=== PATIENT | male | born 1960 | race Caucasian/White ===

== ENCOUNTER 2024-01-22 20:53 | Inpatient (IN) | payer OTHER, SELFPAY ==
[2024-01-22] VITALS (13 sets, daily range): BP systolic 138–178; BP diastolic 92–125; PULSE 70–88; RESP 13–26; TEMP 36.2–36.3; O2SAT 93–97; BMI 28.3; BMI 27.3
--- NOTE | 2024-01-22 20:57 | ED.VIS.CHEST ---
HPI History of Present Illness Chief Complaint: Chest Pain Detail of Chief Complaint: Chest pain, posterior DE on prehospital EKG Informant: patient and EMS Onset/Context/Timing Onset: Today (1830) and Weeks (Anginal symptoms for the past several weeks) Activity at onset: sudden Timing: Continuous Quality: Positive for Aching, Indigestion and Pressure Location: Substernal Current Severity: Mild Maximum Severity: Severe Relieved By: Nothing Associated Symptoms: Positive for Nausea and Dyspnea Narrative Narrative: Patient is 63-year-old male who never smoked presents with EKG G changes and chest pain. Patient states has had intermittent symptoms for the past several weeks. He ignored them. He is not taking his hypertensive meds or cholesterol meds. He is taking herbal supplements instead. He has not had an EKG in approximate 20 years. That EKG was performed in 2004 and was normal. First EKG reveals suspicion for lateral ischemia. Second EKG is consistent with acute posterior myocardial infarction. STEMI team was called. Dr. Anguiano and requested repeat EKG and a posterior EKG. These were obtained and sent to him. Prior Similar Symptoms: Yes Recent Illness/Hospitalization: No CVD Risk Factors: Positive for Hypertension and Hypercholesterolemia PE Risk Factors: Negative for Recent Travel/Surgery, Recent Immobilization, Prior DVT or PE, Cancer or OCP + Smoking + >/=35 TAD Risk Factors: Positive for Hypertension; Negative for Marfan's Syndrome or Family History [facility] Medical History (Updated 01/22/24 @ 21:[address] Redd Velasquez MD) Hypertension Home Medications NK 01/22/24 [History Last Taken Unknown] Allergy/AdvReac Type Severity Reaction Status Date / Time No Known Allergies Allergy Verified 01/22/24 21:02 Social History (Updated 01/22/24 @ 21:[address] Redd Velasquez MD) household members: none Smoking Status: Never smoker ROS ROS ED Constitutional Constitutional ED: Denies chills or fever(s) Eyes Eyes: Reports none ENT ENT ED: Denies rhinorrhea or sore throat Cardiovascular Cardiovascular: Reports as per HPI; Denies orthopnea or paroxysmal nocturnal dyspnea Respiratory/Chest Respiratory/Chest: Reports dyspnea; Denies cough, dyspnea on exertion, orthopnea or paroxysmal nocturnal dyspnea Gastrointestinal Gastrointestinal: Denies abdominal pain, nausea or vomiting Musculoskeletal Musculoskeletal: Denies arthralgias, back pain or myalgias Integumentary Denies rash Neurologic Neurologic: Denies headache(s) or paresthesias Endocrine Endocrinology: Denies cold intolerance or heat intolerance Hematologic/Lymphatic Hematologic/Lymphatic: Denies easy bleeding or easy bruising EXAM Physical Exam Const Vital Signs: 01/22/24 20:53 01/22/24 20:53 01/22/24 21:02 Temperature 97.1 F L Temperature Source Temporal Pulse Rate 88 Respiratory Rate 19 H Respiratory Effort Normal Non-Labored Blood Pressure 175/125 H Blood Pressure Mean 141 Blood Pressure Source Pulse Ox 96 Oxygen Delivery Method Nasal Cannula Nasal Cannula Oxygen Flow Rate (L/min) 2 01/22/24 21:06 01/22/24 21:15 01/22/24 21:09 Temperature 97.1 F L Temperature Source Pulse Rate 86 72 78 Respiratory Rate 16 17 Respiratory Effort Blood Pressure 165/100 H 177/104 H Blood Pressure Mean 121 128 Blood Pressure Source Monitor Pulse Ox 93 Oxygen Delivery Method Oxygen Flow Rate (L/min) 01/22/24 21:10 01/22/24 21:11 01/22/24 21:20 Temperature Temperature Source Pulse Rate 71 78 70 Respiratory Rate 24 H 20 H 19 H Respiratory Effort Blood Pressure 178/100 H 170/99 H Blood Pressure Mean 125 122 Blood Pressure Source Pulse Ox Oxygen Delivery Method Oxygen Flow Rate (L/min) Positive well nourished and well developed General Appearance ED: well developed and NAD HEENT Reports moist mucous membranes normocephalic and atraumatic Eyes PERRL and EOMs intact bilaterally General Eye ED: Negative for pale conjunctiva or scleral icterus Neck no lymphadenopathy, supple and no JVD Chest Wall inspection of chest normal and palpation of chest normal Resp normal respiratory effort and clear to auscultation bilaterally Cardio regular rate, regular rhythm, S1 normal heart sound, S2 normal heart sound and no murmurs Peripheral Pulses: pulses 2+ throughout GI normal to inspection, nondistended, normoactive bowel sounds, soft to palpation, non-tender, non-distended and no masses; Negative for hepatosplenomegaly Back/Spine no CVA tenderness and no thoracic nor lumbar tenderness Extremity normal to inspection General Extremety ED: Negative for edema, pulses abnormal or tenderness General Extremity: Negative for edema or pulses abnormal Neuro oriented x3 and CN's II-XII intact bilaterally Sensorium / Orientation: awake and alert Psych mental status grossly normal Skin no rashes or lesions noted and no wounds Heart Score History: Moderately Suspicious ECG: Significant ST-Depression Age: >45 - <65 years Risk Factors: 1 or 2 Risk Factors Score: 5 MDM MDM MDM Narrative Medical decision making narrative: Patient's history is concerning EKG is definitely abnormal and consistent with posterior DE in my opinion. Dr. Anguiano and was sent photos of the first and second EKG. He requested repeat EKG and posterior EKG. He agrees there is ischemia. He does not believe this represents an acute posterior myocardial infarction. He was told patient did receive aspirin, Brilinta and heparin. He would like patient placed on a nitro drip and a heparin drip. He wishes for me to call back in 30 minutes. If patient is still having discomfort he will take him to the [facility]. Lab Data Attestation: I reviewed the patient's lab results. Lab results narrative: White count is slightly elevated. H&H and differential are normal. Labs: Laboratory Results - last 24 hr 01/22/24 20:58 WBC 11.1 H RBC 5.38 Hgb 15.8 Hct 48.6 MCV 90.3 MCH 29.4 MCHC 32.5 RDW Std Deviation 43.8 RDW Coeff of Nilson 13.3 Plt Count 222 MPV 9.6 Immature Gran % (Auto) 0.400 Neut % (Auto) 73.0 H Lymph % (Auto) 16.3 L [place] % (Auto) 6.8 Eos % (Auto) 2.6 Baso % (Auto) 0.9 Absolute Neuts (auto) 8.1 H Absolute Lymphs (auto) 1.81 Nucleated RBC % 0 PT 13.7 INR 1.1 APTT 117.1 H* EKG Initial EKG: Attestation: I personally reviewed and interpreted this EKG as follows: (EKG was documented in the HPI narrative and MDM.) Treatment and Re-Evaluation :: EKG #[address] depression throughout. Dr. Whalen and is presently in department. Plan is to take to the [facility]. Rhythm is sinus. Rate is normal. Critical Care Time Critical Care Time: Yes Critical care time (excluding procedures): 30-74 minutes (33), Including time spent: (Discussion with paramedics, interpretation of EKG 1 and 2 from paramedics. Review of prior EKG), Discussing w/Patient &/or Family/Physician Office Assistant, Discussing w/Consultants (Dr. Annmarie ruano and hospitalist.) and Arranging Admission or Transfer (To [facility]) Discharge Plan Dx/Rx/DC Orders Clinical Impression: ACS (acute coronary syndrome), Hypercholesterolemia, Hypertension Disposition Disposition: Acute Care [facility]
--- OUTSIDE RECORDS SUMMARY | 2024-01-22 20:58 | XMS RPT_ITS | CCD ---
Author Name Unknown Address [address] [place] [address] Organization [employer] Results Test Name Value Interpretation Reference Range Facil ity Progress note 08-07-2021 Note Date & Type Note Facility 08-07-2021 Note HNO ID: [id number] Author: Taras Strauss MD Service: ? Author Type: Physician Type: Progress Notes Filed: 08/07/2021 10:04 AM Note Text: HISTORY AND PHYSICAL Vanessa Leung 1960 REFERRING PHYSICIAN: Self CHIEF COMPLAINT: Consult (Possible Bilateral Inguinal Hernias) HPI: Vanessa is a 61 year old male with a complaint of discomfort in his right inguinal region and left inguinal region. The patient notes discomfort in this area with lifting, coughing and moving. The symptoms have increased, over the past few weeks. He notes discomfort mostly as he is weight lifting. He is currently doing lower leg presses of approximately 400 pounds and that is when he notes more discomfort in the left side versus the right side. The patient had previous open hernia in the past without mesh and then bilateral open inguinal hernias with mesh in the . The patient notes no symptoms of bowel obstruction and denies nausea or vomiting. PAST MEDICAL HISTORY Diagnosis Date - Hemorrhoid - High cholesterol PAST SURGICAL HISTORY Procedure Laterality Date - BUNIONECTOMY, LAPIDUS-TYPE - HERNIA REPAIR HX 01/1990 Left Inguinal Hernia AND 08/1993 Bilateral Inguinal Hernia repair Current Outpatient Medications Medication Sig - multivitamin tablet Take 1 tablet by mouth once daily. No current facility-administered medications for this visit. ALLERGIES: Patient has no known allergies. PERSONAL HISTORY: Social History Tobacco Use - Smoking status: Never Smoker - Smokeless tobacco: Never Used Vaping Use - Vaping Use: Never used Substance Use Topics - Alcohol use: No - Drug use: Not on file FAMILY HISTORY: FAMILY HISTORY Problem Relation Age of Onset - Heart Mother - Heart Father - Cancer Sister - Cancer Maternal Uncle REVIEW OF SYMPTOMS: The review of systems data was entered by the nurse and reviewed by ia Nursing Notes: Naomie Toro ANN 08/06/2021 3:40 PM Signed REVIEW OF SYSTEMS: General: The patient denies fatigue, denies weight loss, denies weight gain, denies feeling hot, and denies feelings of cold. Eyes: The patient denies glaucoma, denies eye injury/surgery, wears glasses or contacts. Ear/Nose/Throat: The patient denies allergies, denies hayfever, denies ear infections, and denies bloody noses. Cardiovascular: The patient denies chest pain, denies heart disease, denies high blood pressure,denies cardiac stent, denies prior heart attack, denies irregular heart beat, NOTES high cholesterol, denies poor circulation, denies heart failure, other cardiac issues, denies claudication, denies cold feet, denies peripheral arterial stent. Respiratory: The patient denies tuberculosis, denies pneumonia, denies frequent cough, denies pulmonary embolism, denies shortness of breath, and denies coughing up blood. Gastrointestinal: The patient denies difficulty swallowing, denies acid reflux, denies ulcers, denies vomiting, denies jaundice/hepatitis, denies gallbladder problems, denies black or tarry stools, NOTES hemorrhoids, denies bleeding from rectum, denies diverticulitis, denies constipation, denies diarrhea, denies loss of stool control, and NOTES hernias. Kidney/Bladder: The patient denies kidney stones, denies urine infections, and denies bloody urine. Skin: The patient denies a history of skin cancer, denies bleeding/changing moles, and denies a history of skin rash. Neurologic: The patient denies a history of epilepsy/convulsions, denies headaches, denies head/spinal injuries, and denies stroke/TIA. Psychiatric: The patient denies psychiatric medications, denies depression, and denies voices, denies substance abuse. Endocrine: The patient denies thyroid disorders, denies diabetes, and denies hormonal problems. Hematologic: The patient denies a history of bruising, denies bleeding, and denies anemia, denies blood clots. Infections: The patient NOTES a history of measles and mumps, denies rheumatic fever, and denies sexually transmitted diseases. Musculoskeletal: The patient denies back pain/injury, denies back problems, denies sciatica, NOTES knee/foot trouble, NOTES arthritis, or denies gout. When was patient's last Mammogram screening? N/A Last Colonoscopy: None Naomie Toro LPN PHYSICAL EXAMINATION: General: The patient is 61 year old male, well nourished, well hydrated in no acute distress. The patient is oriented to time, place, and person. VITALS: Pulse (!) 58, temperature 36.8 ?C (98.2 ?F), height 177.8 cm (5' 10 ), weight 79.8 kg (176 lb), SpO2 98 %. Body mass index is 25.25 kg/m?. HEENT: Normal cephalic, ataumatic, pupils are equally round, sclera are anicteric, mucous membranes are moist, oropharynx is clear. Neck has no masses, asymmetry or lymphadenopathy. Thyroid is unremarkable. Respiratory: Clear to auscultation and percussion. Normal respiratory excursion and pattern. Cardiac: Examination is regular rate and rh (more content not included)... [facility] Summary Purpose Family History No Family History Records Found Advance Directives No Advanced Directives Records Found Additional Source Comments (unrecognized sect ion and content) No Status Records Found INFORMATION SOURCE (unrecogn ized section and content) FOR RECORDS PERTAINING TO PATIENTS WHO ARE OR HAVE BEEN ENROLLED IN A CHEMICAL DEPENDENCY/SUBSTANCEABUSE PROGRAM, SOME INFORMATION MAY BE OMITTED. This clinical summary was aggregated from multiple sources. Caution should be exercised in using it in the provision of clinical care. This summary normalizes information from multiple sources, and as a consequence, information in this document may materially change the coding, format and clinical context of patient data. In addition, data may be omitted in some cases. CLINICAL DECISIONS SHOULD BE BASED ON THE PRIMARY CLINICAL RECORDS. [email or web address] provides no warranty or guarantee of the accuracy or completeness of information in this document.
--- NOTE | 2024-01-22 21:00 | EKG12_ITS ---
Test Reason : REPEAT CP Blood Pressure : / mmHG Vent. Rate : 074 BPM Atrial Rate : 074 BPM P-R Int : 148 ms QRS Dur : 100 ms QT Int : 404 ms P-R-T Axes : 047 -42 -84 degrees QTc Int : 448 ms Normal sinus rhythm Left axis deviation Inferior infarct , age undetermined Marked ST abnormality, possible anterolateral subendocardial injury Abnormal ECG When compared with ECG of 22-JAN-2024 21:00, MANUAL COMPARISON REQUIRED, DATA IS UNCONFIRMED Confirmed by New Garcia ([id number]), editor farm journal GABBIE COKER ([id number]) on 01/28/2024 11:14:49 AM Referred By: Rod Whalen Confirmed By:New Garcia
[2024-01-22 21:08] LABS: Absolute Lymphocyte Count 1.81 X10^3/uL (0.83-4.51); Absolute Neutrophil Count 8.1 X10^3/uL (2.0-7.7); Basophil% 0.9 % (0-1); Eosinophil# 0.29 X10^3/uL; Eosinophils% 2.6 % (0-5); Hematocrit 48.6 % (40-54); Hemoglobin 15.8 g/dL (13.0-16.5); Lymphocyte # 1.81 X10^3/ul (0.83-4.51); Lymphocyte % 16.3 % (19-41); Mean Corp Hgb Conc 32.5 g/dL (32-36); Mean Corpuscular Hgb 29.4 pg (27.0-32.0); Mean Corpuscular Volume 90.3 fL (80-94); Mean Platelet Vol. 9.6 fl (6.2-12.0); Monocyte# 0.75 X10^3/uL; Monocyte% 6.8 % (0-10); NRBC Flagged by Analyzer 0 % (0-5); Neutrophil # 8.12 X10^3/uL (2.7-7.7); Platelet Count 222 K/mm3 (150-450); RBC Distribution Width CV 13.3 % (11.6-14.6); RBC Distribution Width SD 43.8 fl (35.1-43.9); Red Blood Count 5.38 M/mm3 (4.6-6.2); White Blood Count 11.1 K/mm3 (4.4-11.0)
[2024-01-22] MEDS: Nitroglycerin Infusion 250 ML 3 MG CONT INF (21:15)
[2024-01-22 21:16] LABS: International Normalized Ratio 1.1; Prothrombin Time (Protime)PT. 13.7 SECONDS (11.7-14.9)
[2024-01-22 21:22] LABS: Partial Thromboplast Time 117.1 Seconds (24.1-36.2)
[2024-01-22] MEDS: HEPARIN/D5w 25,000 UNITS 25,000 UNITS/250 ML IV.SOLN. 10 UNITS CONT INF (21:22)
--- NOTE | 2024-01-22 21:25 | EKG12_ITS ---
Test Reason : postcath Blood Pressure : / mmHG Vent. Rate : 076 BPM Atrial Rate : 076 BPM P-R Int : 144 ms QRS Dur : 098 ms QT Int : 402 ms P-R-T Axes : 051 -24 -23 degrees QTc Int : 452 ms Normal sinus rhythm Inferior infarct , age undetermined Abnormal ECG When compared with ECG of 22-JAN-2024 21:25, MANUAL COMPARISON REQUIRED, DATA IS UNCONFIRMED Confirmed by DILEEP MACEDO, SHWETA ([id number]), purchasing expeditor GABBIE COKER ([id number]) on 01/26/2024 7:00:24 AM Referred By: Rod Whalen Confirmed By:SHWETA FALK MD
[2024-01-22 21:35] LABS: Anion Gap 6 (5-15); BUN 23 mg/dL (7-18); BUN/Creat Ratio 16.5 RATIO (10-20); Calcium,Total 9.1 mg/dL (8.5-10.1); Chloride 106 mmol/L (98-107); Creatinine, Serum 1.39 mg/dL (0.70-1.30); EST Glomerular Filtration Rate 55 mL/min (>60); Est Glom Filt Rate - Afr Amer 66 mL/min (>60); Estimated Creatinine Clearance 61.21 ml/min; Glucose 188 mg/dL (74-106); Potassium 4.8 mmol/L (3.5-5.1); Sodium Level 137 mmol/L (136-145); Troponin-I HS 180 pg/mL (3.0-78.0)
--- NOTE | 2024-01-22 21:44 | CON.PCM.CA_ITS ---
Assessment & Plan Assessment/Plan (1) NSTEMI (non-ST elevated myocardial infarction): PLAN: High risk with diffuse ST depressions and ST elevation in aVR. Consider left main disease versus left main equivalent. Already given aspirin. Start nitrates. Recommended coronary angiography with possible revascularization. Risks benefits and alternatives explained. He understands these and wishes to proceed. (2) Hypertension: PLAN: Nitrates. Beta-blockers. ARB. HPI Consult Data Date of Consult: 01/22/24 HPI Narrative Reason for Consultation: Chest pain HPI Narrative: This gentleman has past medical history significant for hypertension however he does not take any medical therapy for it but some herbal supplements. According to him, he has been having intermittent upper back pain for few days. This occurs both at rest as well as with exertion. Lasts from 2 to 20 minutes. Positive associated shortness of breath. No diaphoresis. He has had a prolonged episode today where and he had upper back discomfort along with anterior chest pressure. EMS was called. EKG was done in the field. A STEMI alert was called. However upon arrival here, repeat ECG did not show any ST elevation myocardial infarction. However global ST depressions are noted with elevation in aVR. First set of troponin is elevated ruling him in for NSTEMI. [facility] Medical History (Updated 01/22/24 @ 21:[address] Rod Whalen MD) Hypertension Home Medications NK 01/22/24 [History Last Taken Unknown] Allergy/AdvReac Type Severity Reaction Status Date / Time No Known Allergies Allergy Verified 01/22/24 21:02 Social History (Updated 01/22/24 @ 21:[address] Redd Velasquez MD) household members: none Smoking Status: Never smoker Risk Stratification Risk Stratification Applicable: No Objective Data Vital Signs: Vital Signs Temp Pulse Resp BP Pulse Ox O2 Del Method O2 Flow Rate 97.1 F L 70 19 H 170/99 H 93 Nasal Cannula 2 01/22/24 21:06 01/22/24 21:20 01/22/24 21:20 01/22/24 21:20 01/22/24 21:06 01/22/24 21:02 01/22/24 21:02 Oxygen Flow Rate (L/min) 2 Oxygen Delivery Method Nasal Cannula Weight: 197 lb 1.492 oz Body Mass Index (BMI) 28.3 Intake & Output: Intake and Output for Last 24 Hours 01/20/24 01/21/24 01/22/24 23:59 23:59 23:59 Intake Total 0 / 0 Balance 0 / 0 Lab / Micro Data Attestation: I reviewed the patient's lab results. 01/22/24 20:58 01/22/24 20:58 Labs: Laboratory Results - last 24 hr 01/22/24 20:58: WBC 11.1 H, RBC 5.38, Hgb 15.8, Hct 48.6, MCV 90.3, MCH 29.4, MCHC 32.5, RDW Std Deviation 43.8, RDW Coeff of Nilson 13.3, Plt Count 222, MPV 9.6, Immature Gran % (Auto) 0.400, Neut % (Auto) 73.0 H, Lymph % (Auto) 16.3 L, [place] % (Auto) 6.8, Eos % (Auto) 2.6, Baso % (Auto) 0.9, Absolute Neuts (auto) 8.1 H, Absolute Lymphs (auto) 1.81, Nucleated RBC % 0, PT 13.7, INR 1.1, APTT 117.1 H*, Sodium 137, Potassium 4.8, Chloride 106, Carbon Dioxide 25.0, Anion Gap 6, BUN 23 H, Creatinine 1.39 H, Estim Creat Clear Calc 61.21, Est GFR (MDRD) Af Amer 66, Est GFR (MDRD) Non-Af 55 L, BUN/Creatinine Ratio 16.5, Glucose 188 H , Calcium 9.1, Troponin I High Sens 180 H* Cardiology Labs/Tests 01/22/24 20:58: WBC 11.1 H, RBC 5.38, Hgb 15.8, Hct 48.6, MCV 90.3, MCH 29.4, MCHC 32.5, Plt Count 222, MPV 9.6, Immature Gran % (Auto) 0.400, Neut % (Auto) 73.0 H, Lymph % (Auto) 16.3 L, [place] % (Auto) 6.8, Eos % (Auto) 2.6, Baso % (Auto) 0.9, Absolute Neuts (auto) 8.1 H, Nucleated RBC % 0, PT 13.7, INR 1.1, APTT 117.1 H*, Sodium 137, Potassium 4.8, Chloride 106, Carbon Dioxide 25.0, Anion Gap 6, BUN 23 H, Creatinine 1.39 H, Est GFR (MDRD) Af Amer 66, Est GFR (MDRD) Non-Af 55 L, BUN/Creatinine Ratio 16.5, Glucose 188 H, Calcium 9.1 Rhythm: EKG: ECHO: Stress Test: Cardiac Cath: PCI: CT Surgery: Holter monitor: EPS: PPM: CXR: Chest CT Scan:
--- OUTSIDE RECORDS SUMMARY | 2024-01-22 21:48 | XMS RPT_ITS | CCD ---
Author Name Unknown Address [address] [place] [address] Organization [facility] Results Test Name Value Interpretation Reference Range Facil ity Progress note 08-07-2021 Note Date & Type Note Facility 08-07-2021 Note HNO ID: [id number] Author: Taras Strauss MD Service: ? Author [...] entered by the nurse and reviewed by nm Nursing Notes: Naomie Toro ANN 08/06/2021 3:40 [...] rate and rh (more content not included)... [facility] Summary Purpose Family History No Family [...] BE BASED ON THE PRIMARY CLINICAL RECORDS. [email or web address] provides no warranty or guarantee of the accuracy or completeness of information in this document.
--- NOTE | 2024-01-22 22:19 | PCM.HP.STD ---
HPI - General General Date of Admission: 01/22/24 Date of Service: 01/22/24 Chief Complaint: Chest Pain. HPI Narrative VANESSA LEUNG, is a 63 M with a past medical history of essential hypertension, hyperlipidemia, overweight; with BMI of 28.3 this admission and OA who presents to [facility] ER complaining of chest pain. Mr. Leung reports his symptoms began approximately earlier today at ~18:30 hours with the abrupt-onset of chest pain that was substernal, severe, aching and pressure-like with indigestion with nothing seeming to make the pain better or worse. He also admits to associated nausea, SOB and he endorses a history of intermittent but escalating anginal symptoms for the past few weeks. He has been self-treating with herbal medications and has not had an EKG since 2004 (which was allegedly normal). EMS was activated and EKG revealed evidence of an Acute Posterior STEMI with an initial troponin of 180 pg/mL with CODE STEMI called in the ER and wan support specialist consulted with initial recommendation for IV Heparin and IV NTG with eventual LHC which according to the QUALITY CONTROL CHEMIST revealed severe triple-vessel coronary artery disease with multiple 95% blockages particularly in the LAD with wan support specialist and recommending patient transfer to tertiary care center for likely CABG x 4. Therefore, this is a same-day admission and discharge. [facility] Medical History Hypertension Home Medications NK 01/22/24 [History Last Taken Unknown] Allergy/AdvReac Type Severity Reaction Status Date / Time No Known Allergies Allergy Verified 01/22/24 21:02 Social History household members: none Smoking Status: Never smoker ROS ROS Narrative Review of systems: General: Patient denies fever or chills. HENT: Denies headache, denies stuffy nose, denies sore throat EYES: Denies changes in vision or discharge from eyes. Resp: Patient admits to shortness of breath at rest but denies cough or PND. Cardiac: Patient admits to severe substernal chest pain as per HPI. GI: Denies abdominal pain, denies changes in bowel, denies nausea or vomiting : Denies changes in urination Extremity: Denies swelling Musculoskeletal: Feels somewhat generally weak and unwell Neuro: Denies any numbness/tingling Heme: Denies any bleeding or bruising Skin: Denies rashes Psychiatric: No complaints voiced related to uncontrolled depression or anxiety. Endocrine: No polyuria, polydipsia or polyphagia. The rest of the 14 point ROS was negative except for positives in HPI. Vital Signs Vital Signs Vital Signs: 01/22/24 20:53 01/22/24 20:53 01/22/24 21:02 Temperature 97.1 F L Temperature Source Temporal Pulse Rate 88 Respiratory Rate 19 H Respiratory Effort Normal Non-Labored Blood Pressure 175/125 H Blood Pressure Mean 141 Blood Pressure Source Pulse Ox 96 Oxygen Delivery Method Nasal Cannula Nasal Cannula Oxygen Flow Rate (L/min) 2 01/22/24 21:06 01/22/24 21:15 01/22/24 21:09 Temperature 97.1 F L Temperature Source Pulse Rate 86 72 78 Respiratory Rate 16 17 Respiratory Effort Blood Pressure 165/100 H 177/104 H Blood Pressure Mean 121 128 Blood Pressure Source Monitor Pulse Ox 93 Oxygen Delivery Method Oxygen Flow Rate (L/min) 01/22/24 21:10 01/22/24 21:11 01/22/24 21:20 Temperature Temperature Source Pulse Rate 71 78 70 Respiratory Rate 24 H 20 H 19 H Respiratory Effort Blood Pressure 178/100 H 170/99 H Blood Pressure Mean 125 122 Blood Pressure Source Pulse Ox Oxygen Delivery Method Oxygen Flow Rate (L/min) Weight Weight: 197 lb 1.492 oz Body Mass Index (BMI) 28.3 Physical Exam Const alert and oriented x3 General Appearance: cooperative HEENT normocephalic, head/scalp atraumatic, hearing grossly normal bilaterally and moist oral mucous membranes Eyes PERRL and EOMs intact bilaterally Neck no lymphadenopathy and supple Resp normal respiratory effort, no retractions, no use of accessory muscles and clear to auscultation bilaterally Cardio regular rate and regular rhythm GI normal to inspection, nondistended, normoactive bowel sounds, soft to palpation, non-tender and non-distended Extremity normal to inspection and full ROM Neuro oriented x3, CN's II-XII intact bilaterally, moves all extremities and no focal motor deficits Sensorium / Orientation: awake, alert, oriented to person, oriented to place and oriented to time Speech: speech normal Motor Exam: strength 5/5 throughout Psych affect normal Results Medical Records Data Attestation: I reviewed the patient's medical records Lab / Micro Data Attestation: I reviewed the patient's lab results. 01/22/24 20:58 01/22/24 20:58 Labs: Laboratory Results - last 24 hr 01/22/24 20:58: WBC 11.1 H, RBC 5.38, Hgb 15.8, Hct 48.6, MCV 90.3, MCH 29.4, MCHC 32.5, RDW Std Deviation 43.8, RDW Coeff of Nilson 13.3, Plt Count 222, MPV 9.6, Immature Gran % (Auto) 0.400, Neut % (Auto) 73.0 H, Lymph % (Auto) 16.3 L, [place] % (Auto) 6.8, Eos % (Auto) 2.6, Baso % (Auto) 0.9, Absolute Neuts (auto) 8.1 H, Absolute Lymphs (auto) 1.81, Nucleated RBC % 0, PT 13.7, INR 1.1, APTT 117.1 H*, Sodium 137, Potassium 4.8, Chloride 106, Carbon Dioxide 25.0, Anion Gap 6, BUN 23 H, Creatinine 1.39 H, Estim Creat Clear Calc 61.21, Est GFR (MDRD) Af Amer 66, Est GFR (MDRD) Non-Af 55 L, BUN/Creatinine Ratio 16.5, Glucose 188 H, Calcium 9.1, Troponin I High Sens 180 H* Assessment & Plan Assessment/Plan (1) ST elevation myocardial infarction (STEMI) of true posterior wall: (2) Uncontrolled hypertension: (3) Hypercholesterolemia: PLAN: Plan 1. Acute Posterior STEMI with an initial troponin of 180 pg/mL with CODE STEMI called in the ER - Admit to ICU while we await transfer to tertiary [facility] with transfer forms already signed. Continue full medical treatment including IV Heparin and IV NTG. We we will transfer patient to tertiary care center soon as a bed becomes available. Cardiology consultation is appreciated. 2. Uncontrolled hypertension of 175/125 mmHg present on admission complicating #1 - Give IV Hydralazine prn for systolic blood pressure > 160 mm Hg. 3. Hyperlipidemia - Resume statin and check lipid profile this admission in light of #1. 4. Overweight; with BMI of 28.3 this admission - Weight loss will be recommended. Check TSH. 5. OA - Stable. Give Tylenol as needed. 6. DVT prophylaxis - Patient already on IV heparin for #1. Total time: Approximately 85 minutes. Charges/Coding Visit Charges OBSV E&M: 92570 Observ/hosp same date L3
[2024-01-22] MEDS: 0.9% Normal Saline (500mL Bag) 500 ML 75 ML IV (22:45)
[2024-01-22] MEDS: Metoprolol Tartrate 25 MG Tablet PO (23:02)
[2024-01-23] VITALS (11 sets, daily range): BP systolic 131–158; BP diastolic 72–98; PULSE 55–83; RESP 13–25; TEMP 36.7; O2SAT 96–99; BMI 26.9
[2024-01-23] MEDS: Atorvastatin Calcium 80 MG Tablet PO
[2024-01-23] MEDS: Heparin Injection (Vial) 5,000 UNIT/ML VIAL IV (02:35)
--- NOTE | 2024-01-23 06:48 | PCM.PN.HOSP ---
Reason for Visit Reason for Visit: Diagnoses Pure hypercholesterolemia, unspecified (01/22/24) Essential (primary) hypertension (01/22/24) ST elevation (STEMI) myocardial infarction involving other sites (01/22/24) Non-ST elevation (NSTEMI) myocardial infarction (01/22/24) Objective Data Objective Data Vital Signs: Vital Signs Temp Pulse Resp BP Pulse Ox O2 Del Method O2 Flow Rate 36.7 C 83 25 H 156/95 H 97 Room Air 2 01/23/24 06:00 01/23/24 06:00 01/23/24 06:00 01/23/24 06:00 01/23/24 06:00 01/23/24 06:00 01/22/24 21:02 Oxygen Flow Rate (L/min) 2 Oxygen Delivery Method Room Air Weight: 85.5 kg Body Mass Index (BMI) 26.9 Intake & Output: Intake and Output for Last 24 Hours 01/21/24 01/22/24 01/23/24 23:59 23:59 23:59 Intake Total 221.25 / 233.25 775.83 / 775.83 Output Total 500 / 500 1400 / 1400 Balance -278.75 / -266.75 -624.17 / -624.17 Lab / Micro Data 01/22/24 20:58 01/22/24 20:58 Labs: Laboratory Results - last 24 hr 01/22/24 20:58: WBC 11.1 H, RBC 5.38, Hgb 15.8, Hct 48.6, MCV 90.3, MCH 29.4, MCHC 32.5, RDW Std Deviation 43.8, RDW Coeff of Nilson 13.3, Plt Count 222, MPV 9.6, Immature Gran % (Auto) 0.400, Neut % (Auto) 73.0 H, Lymph % (Auto) 16.3 L, [place] % (Auto) 6.8, Eos % (Auto) 2.6, Baso % (Auto) 0.9, Absolute Neuts (auto) 8.1 H, Absolute Lymphs (auto) 1.81, Nucleated RBC % 0, PT 13.7, INR 1.1, APTT 117.1 H*, Sodium 137, Potassium 4.8, Chloride 106, Carbon Dioxide 25.0, Anion Gap 6, BUN 23 H, Creatinine 1.39 H, Estim Creat Clear Calc 61.21, Est GFR (MDRD) Af Amer 66, Est GFR (MDRD) Non-Af 55 L, BUN/Creatinine Ratio 16.5, Glucose 188 H, Calcium 9.1, Troponin I High Sens 180 H* 01/23/24 01:54: APTT 26.0 Assessment & Plan Assessment/Plan (1) ST elevation myocardial infarction (STEMI) of true posterior wall: (2) Uncontrolled hypertension: PLAN: Plan NSTEMI not felt to be a STEMI by cardiology despite STEMI alert [facility] showed multivessel disease: stenosis 89-90% prox LAD, 99% prox LCx, 80% distal circumflex, 70% proximal RCA Pt to require coronary bypass and pending transfer. Heaprin and NTG gtt, Continue ASA, metoprolol tart, lisinopril, HIS Untreated and uncontrolled hypertension improved on lisinopril and metop tart monitor for now. VTE prophylaxis: not indicated as already anticoagulated with heparin gtt.
[2024-01-23] MEDS: Lisinopril 2.5 MG Tablet PO (07:43)
[2024-01-23] MEDS: Aspirin E.C. 81 MG Tablet PO (07:43)
[2024-01-23] MEDS: Metoprolol Tartrate 25 MG Tablet PO (07:43)
[2024-01-23] MEDS: Spironolactone 25 MG Tablet 12.5 MG PO (07:44)
--- NOTE | 2024-01-23 08:58 | PCM.DC.SUM ---
Providers Date of Admission: 01/22/24 Primary Care Physician: Marya Dale, MADELIN-C Reason For Visit: ACUTE POSTERIOR HI Diagnosis Discharge Diagnosis (1) ST elevation myocardial infarction (STEMI) of true posterior wall: Status: Acute Code(s): I21.29 - ST elevation (STEMI) myocardial infarction involving other sites (2) Uncontrolled hypertension: Status: Acute Code(s): I10 - Essential (primary) hypertension Medications at Discharge Home Medications NK 01/22/24 Hospital Course Operations None Procedures Cardiac catheterization Summary of Care Provided Hospital Course: NSTEMI not felt to be a STEMI by cardiology despite STEMI alert [facility] showed multivessel disease: stenosis 89-90% prox LAD, 99% prox LCx, 80% distal circumflex, 70% proximal RCA Pt to require coronary bypass and pending transfer. Heaprin and NTG gtt, Continue ASA, metoprolol tart, lisinopril, HIS Untreated and uncontrolled hypertension improved on lisinopril and metop tart monitor for now. VTE prophylaxis: not indicated as already anticoagulated with heparin gtt. Weight / BMI Weight Weight: 85.5 kg Body Mass Index (BMI) 26.9 ABG / Lab / Microbiology Data 01/22/24 20:58 01/22/24 20:58 Laboratory: Laboratory Results - last 24 hr 01/22/24 20:58: WBC 11.1 H, RBC 5.38, Hgb 15.8, Hct 48.6, MCV 90.3, MCH 29.4, MCHC 32.5, RDW Std Deviation 43.8, RDW Coeff of Nilson 13.3, Plt Count 222, MPV 9.6, Immature Gran % (Auto) 0.400, Neut % (Auto) 73.0 H, Lymph % (Auto) 16.3 L, [place] % (Auto) 6.8, Eos % (Auto) 2.6, Baso % (Auto) 0.9, Absolute Neuts (auto) 8.1 H, Absolute Lymphs (auto) 1.81, Nucleated RBC % 0, PT 13.7, INR 1.1, APTT 117.1 H*, Sodium 137, Potassium 4.8, Chloride 106, Carbon Dioxide 25.0, Anion Gap 6, BUN 23 H, Creatinine 1.39 H, Estim Creat Clear Calc 61.21, Est GFR (MDRD) Af Amer 66, Est GFR (MDRD) Non-Af 55 L, BUN/Creatinine Ratio 16.5, Glucose 188 H, Calcium 9.1, Troponin I High Sens 180 H* 01/23/24 01:54: APTT 26.0 Meaningful Use Info Meaningful Use Diagnoses (Choose all that apply): None applicable Discharge Plan Admission Admit Date/Time: 01/22/24 21:37 Primary Reason for Your Visit: NSTEMI Attending Provider: Levy Ralph Primary Care Provider: Marya Dale NP Consulting Providers: Santos Teixeira Discharge Orders/Prescriptions Prescriptions: No Action NK Referrals / Follow Up: Care Physician,No Primary [Non-Staff] - Marya Dale NP, MANAGER PRIMARY-C [Primary Care Provider] - Disposition Disposition (needs filled in before D/C Order can be placed): Acute Care Hospital
[2024-01-23 15:57] LABS: ACT Activated Clotting Time 223 sec (74-137)
--- NOTE | 2024-01-26 14:26 | CL.D_ITS ---
Patient Name: VANESSA SHINE Study Date: 01/22/2024 Performing: Rod Whalen MD Ht: 70 inches 177.8 cm : 1960 Wt: 197.4 lbs 89.4 kg Age: 63 Gender: male BSA: 2.07 PROCEDURE(S) PERFORMED [id number])LHC/COR/LV CLINICAL PROFILE AND INDICATIONS Indications: ACS <= 24 hrs Heart Failure: None Angina Classification Anginal Classification w/in 2 Weeks: CCS IV CAD Presentations: Non-STEMI. Symptom onset Date/Time: Time Not Available CONCLUSIONS 80-90% Prox LAD 99% Prox LCX (dominant), 80% distal LCX 70% Prox non-dominant RCA LVEF 40% RECOMMENDATIONS Surgery consult for coronary revascularization DESCRIPTION OF PROCEDURE The patient arrived to the procedure lab. The risks and benefits of the procedure as well as a full description of our services here and current unavailability of surgical backup were fully explained to the patient and/or their significant other prior to the catheterization. The Timeout was completed, verifying the correct patient and procedure. The patient's procedural site was prepped and draped in the usual fashion. Local anesthetic was given subcutaneously to right radial region with Lidocaine 2%. Using a modified Seldinger technique, arterial access was obtained via the right radial artery, a 6Fr sheath was inserted. Left Coronary Artery selective angiography was performed in multiple views using a 5 Fr. 4.0 [place] catheter. Right Coronary Artery selective angiography was then performed in multiple views using a 5 Fr. 4.0 [place] catheter. Left Ventriculography was performed in CHATMAN projection using a 5 Fr. Pigtail catheter. LV to AO pullback pressures were then recorded.The arterial sheath was pulled and a TR Band was applied for hemostasis CORONARY ANGIOGRAPHY DOMINANCE: Left Dominant LEFT HEART ASSESSMENT Left Ventricular Ejection Fraction: by LV Gram 40% LVEDP: 23 mmHg LEFT ANTERIOR DESCENDING ARTERY: LAD: Tubular 80% Proximal lesion in LAD RIGHT CORONARY ARTERY: RCA: Tubular 70% Proximal lesion in RCA COMPLICATIONS No Complications PROCEDURE MEDICATIONS Fentanyl 50 mcg IV Versed 1 mg IV Oxygen: 2 L/min via nasal cannula Heparin given IA 01/22/2024 21:57:02 Nitro glycerin 25mg / 250ml D5W @ 5 mcg/min IV started in ED 01/22/2024 21:48:25 Nitro glycerin 25mg / 250ml D5W @ discontinued 01/22/2024 21:57:16 Nitro glycerin 25mg / 250ml D5W @ 20 mcg/min IV started 01/22/2024 22:12:23 Verapamil 2.5mg, Ntg 200mcgs, 2000 units of Heparin given IA 01/22/2024 21:57:02 SUMMARY OF HEMODYNAMIC DATA Time AIR REST ECG 21:45:35 AO 130/83 (106) SA 21:59:35 LV 159/4, 13 22:10:31 LV 159/4, 16 22:10:40 LV 166/12, 23 22:11:37 LVp 159/12, 23 22:11:52 AOp 161/95 (125) 22:11:59 Signed By Rod Whalen MD On 01/22/2024 22:48:41 Rod Whalen MD
== END 2024-01-23 08:20 | disposition short-term general hospital (02) | DRG 282 ==
LOC: ED 21:36 → ICU 01-23 06:43
PROVIDERS: Admitting Provider Internal Medicine; Emergency Provider Emergency Medicine; PCP Registered Nurse; Referring Provider Internal Medicine Cardiovascular Disease
DX: I21.4 Non-ST elevation (NSTEMI) myocardial infarction (principal); E66.3 Overweight; I10 Essential (primary) hypertension; M19.90 Unspecified osteoarthritis, unspecified site; E78.5 Hyperlipidemia, unspecified; Z79.82 Long term (current) use of aspirin; Z68.28 Body mass index [BMI] 28.0-28.9, adult
CPT/HCPCS: 80048; 84484; 85025; 85347; 85610; 85730; 93005; 93458; 99152; 99153; 99284; J7040; Q9967; A4216; C1769; C1894

== ENCOUNTER → 2024-03-18 | Outpatient (CLI) | payer OTHER, SELFPAY ==
--- NOTE | 2024-03-18 07:59 | PCM.CR.HP2 ---
CR - History & Physical General Arrival date:: 03/18/24 Arrival time:: 07:59 Date of Referral:: 03/14/24 Date of CR Evaluation:: 03/18/24 Referring Physician: Dr. Whalen Primary Diagnosis: CABG History of Present Cardiac Event Onset Date Coronary Artery Bypass Graft:: Yes Medications Ambulatory Orders Medication Instructions Recorded amlodipine 2.5 mg tablet 2.5 mg PO DAILY #30 tabs 03/11/24 ascorbic acid (vitamin C) 500 mg 500 mg PO DAILY 03/11/24 tablet aspirin 81 mg tablet,delayed 81 mg PO DAILY 03/11/24 release cholecalciferol (vitamin D3) 50 50 mcg PO DAILY 03/11/24 mcg (2,000 unit) tablet clopidogrel 75 mg tablet 75 mg PO DAILY 03/11/24 magnesium 250 mg tablet 250 mg PO DAILY 03/11/24 metoprolol tartrate 25 mg tablet 25 mg PO BID 03/11/24 potassium gluconate 595 mg (99 mg) 595 mg PO DAILY 03/11/24 tablet rosuvastatin 40 mg tablet 40 mg PO DAILY 03/11/24 vitamin B complex 1 cap PO DAILY 03/11/24 zinc gluconate 50 mg tablet 50 mg PO DAILY 03/11/24 Allergies Allergies No Known Allergies Allergy (Verified 03/11/24 14:35) Sleep Disorder Evaluation Hx of Sleep Apnea: No Do you snore loudly (louder than talking or can be heard through closed doors)?: Yes Do you often feel tired/ fatigued/ sleepy during daytime?: No Has anyone observed you stop breathing during sleep?: No History of Hypertension (for STOP score): Yes STOP Results: Positive Advanced Directives Advanced Directives Power of Dance Choreographer: Yes Living Will: Yes Advance Directives Information Provided: Yes Advance Directives on File: No DNR Order?:: No Past Medical History Covid-19 Screening Physicial Symptoms Other Clinical Concerns Exposure Risk Pertinent Comorbidities Has a serious heart condition:: Yes Past Medical Illness Past Medical History (Updated 03/14/24 @ 13:27 by Brittney Jay) Atherosclerotic heart disease of [place] coronary artery without angina pectoris I25.10 Hypercholesterolemia E78.00 Hypertension I10 Hypertension I10 Past Surgical History Past Surgical History (Updated 03/11/24 @ 14:31 by Alis Holden NP, FORENSIC SPECIALIST-C) S/P triple vessel bypass Z95.1 Family History Summary Family History Mother Heart disease Father Myocardial infarction Sister Hypertension Cancer Social History Smoking History Smoking Status: Never smoker Alcohol Use Alcohol Usage: No Substance Abuse Hx Substance Use: No Occupation Occupation (List type of work in comments):: Employed Hours worked per day:: 7 Returned to work on:: 03/21/24 Hobbies, Recreation, Social Activities Hobbies: Sports, Reading and Walking Recreational Activities: I am able to engage in all my recreational activities Social Environment Status Marital Status: Current Living Arrangements Living Environment:: Spouse Children How many children do you have?: 2 Do any of your children live nearby?: Yes Safety Do you feel safe in your surroundings?: Yes Assistance Do you need any assistance at home?: no Review of Systems Review of Systems Hints Review of Present Symptoms: Reports Fatigue and Appetite - Special Diet; Denies Shortness of Breath at Rest, Shortness of Breath with Exertion, PVD, Operative Discomfort, Angina, Wound Healing, Dizziness/Lightheadedness, Heart Arrhythmia/Irregularities, Appetite - Normal, Sleep - Normal or Sexual Changes Pain Is Patient Pain Free?: Yes Risk Factor Assessment Chief Complaint Chief Complaint: CABG Vital Signs Pulse Ox: 100 Blood Pressure: 173/89 Pulse Pulse Rate: 49 Hypertension How long have you been treated?: 2 months Blood Pressure Sitting - Right Arm: 173/89 Stress Stress: Work-related and Home/Family Obesity Height: 5 ft 10 in Weight:: 170 lb Weight in Pounds: 170.0 lbs Body Mass Index (BMI): 24.3 Nutritional Referral for Obesity: No Physical Inactivity Physical Inactivity: Reg Exercise 30 min/day Risk Stratification Risk Guidelines: Lowest Risk: Risk Factor for Smoking, Moderate Risk: Risk Factor for Diabetes, Risk Factor for Obesity, Risk Factor for Sedentary Lifestyle and Risk Factor for Depression and Highest Risk: Risk Factor for Dyslipidemia and Risk Factor for Hypertension For Smoking Smoking Risk Guidelines For Dyslipidemia Dyslipidemia Risk Guidelines For Diabetes Mellitus Diabetes Risk Guidelines For Obesity/Overweight Obesity/Overweight Risk Guidelines For Hypertension Hypertension Risk Guidelines For Sedentary Lifestyle Sedentary Lifestyle Risk Guidelines For Depression Depression Risk Guidelines Family History Family History Mother Heart disease Father Myocardial infarction Sister Hypertension Cancer Motivation Motivation to Participate On a scale of 1 to 10, how prepared are you to commit to attending program?: 9 What do you see as barriers to successfully being able to complete the program?: nothing What do you see as the benefits of succesfully completing the program? In other words, what do you hope to get out of participating in the program?: strength and stamina Are there issues you are dealing with that will interfere with completing the program?: no Do you have a spouse or signficant other, family or friends who will help support you to complete the program?: yes
[2024-03-18 08:05] VITALS: BP 173/89; PULSE 49; O2SAT 100
--- NOTE | 2024-03-18 08:05 | CR.ITP_ITS ---
Diagnosis General Information Admitting Diagnosis: CABG Personal Learning Style:: Audio/Visual, Demonstration, Group, Individual Preference and Written Stage of change r/t lifestyle modifications:: Contemplation Gave educational material for:: Treating Heart Disease, How The Heart Works, What it means to have Heart Disease, How Coronary Artery Disease is Diagnosed, Heart Procedures, What Heart Medications Do, Risk Factors & Modifications, Living an Active Life, Nutrition, Emotions & Heart Disease, Stress Management & Relaxation and Sleep Disorders & Heart Disease Education/Goals Cardiac Rehabilitation Goals Personal Goals: Initial Assessment: Improve management of stress and emotions, Participate in home exercise program, Get back to work, or to resume activities faster, Improve knowledge of cardiac disease, Improve muscle strength and endurance, Improve diet and eating habits (eat healthier) and Control risk factors (learn risk factor modification) Scale for measuring improvement of personal goals Diagnosis & Disease Process Outcomes/Goals: Pt IDs own risk factors & lifestyle modifications by Session 10, Verbalizes symptoms of angina & response by session 3., Pt independently manages and Other Additional Outcomes/Goals: Plan/Interventions: Assist Pt to ID & engage in lifestyle modification to reduce CVD risk, Instruct on individual risk factors, Review symptoms of angina & emergency actions, Review secondary diagnosis & identify educational needs. and Other see comment 30 day Reassessments:: Not Met 30 day Reassessments:: Not Met 30 day Reassessments:: Not Met 30 day Reassessments:: Not Met Final Reassessments:: Not Met Safety Referral to Physical Therapy: No Referral to [facility] Case Management: No Fall Risk Assessed:: Yes Assistive Devices:: None Exercise - Initial Assessment Visit Date of Eval: 03/18/24 (initial eval ) Mets: Pre-: >3 METS for 30 minutes by discharge, >5 METS for 30 minutes by discharge, >7 METS for 30 minutes by discharge and Unable to meet goal due to: (see comment below) Physician Prescribed Exercise Modalities: Treadmill, Airdyne, NuStep, SciFit and Lateral [place] Frequency: 2x/week for 18 weeks [36 sessions] and 3x/week for 12 weeks [36 sessions] Intensity: 60-80% of age predicted maximum heart rate reserve Duration: 30 - 45 minutes Current METSs:: 3 Target Heart Rate:: 94-118 Resting Blood Pressure: 173/89 EKG Type: SB RBBB, nonspecific T wave abnormality Outcomes & Goals Goals:: Verbalizes understanding of THR, RPE & goal METS by session 6, Documents in home exercise log/reports 30 min aerobic 5 day/wk by DC, Demonstrates accurate pulse taking by DC and Other additional outcome/goals: see below Intervention & Plan Exercise Program Goals: Instruct on personal THR & RPE, Instruct on MET level & personal MET goal, Show patient to take own pulse /validate performance until accurate, Instruct on home exercise and Other additional plan/int Physical Activity Home Exercise Physical Activity - Home Exercise: Safe Exercise, Warm-up, Self-monitoring, Cool-Down, Home Exercise > 30 min Daily and Sitting Time <3 hours/daily Outcomes & Goals Outcomes/Goals: Demonstrates correct Warm-up/exercise Cool-Down (S3) if = 2.5 METs, Verbalizes symptoms of exercise intolerance by Session 3 (S3), Demonstrate safe equipment use (S3) & follows exercise prescrition (6) and Other: See below Intervention & Plan Plan/Intervention: Instruct warm-up & cool-down if exercising at > 2 METs, Instruct on symptoms of exercise intolerance & actions to take, Instruct & monitor on saf, Assess intial functional capacity & safety risk and Other See below Nutrition - Initial Assessment Program Goals Nutrition Program Goals Patient has diagnosis of Hyperlipidemia (ICD E78)?: Yes Visit Date of Eval: 03/18/24 (initial eval ) Cholesterol/Lipids (Other Core Measures) Determine presence & major risk factors that modify LDL goal: Hypertension or hypertensive medication, Low HDL cholesterol <40 mg/dL*, Family history of premature CHD in Male < 55 years: female <65 yearsFa and Age men > 45 years; women >/= 55 years Outcomes/Goals: Pt IDs own risk factors & lifestyle modifications by Session 10, Verbalizes symptoms of angina & response by session 3., Pt independently manages and Other Additional Outcomes/Goals: Intervention/Plan: Advocate for lipid panel cholesterol medication if applicable, Instruct on personal lipid levels & lipid goals/NCEP guidelines, Instruct on cholesterol and Other additional plan/int Referral to dietitian:: No Diabetes (Other Core Measures) Diabetes Type: Not Applicable Weight Mgt (Other Care) Height: 5 ft 10 in Weight:: 170 lb BMI: 24.3 Diagnosis Overweight/Obesity BMI> 30% ICD-10 E66: No Diagnosis High BMI/Morbid Obesity BMI> 35% ICD-10 Z68: No Outcomes/Goals: Pt sets, maintains & shows weight loss goal & trend during rehab and Other additional outcomes/goals Intervention/Plan: Instruct on ideal BMI & set weight loss goal w/patient, Assist pt to ID & incorporate diet changes for weight loss by S9, Refer to Structured Weight Loss program as appropriate, Encourage goal of using 250- 300dcal per session for weight loss and Other additional plan/interventions Healthy Eating Habits Will attend diet classes:: Yes Outcomes/Goals:: Consume diet rich in vegs,fruits,whole grain/high fiber,fish,lean meat, Limit sat/trans fats,cholesterol & added salts & sugars and Other additional outcome/goals: Intervention/Plan:: Assess current eating habits and Other Additional plan/interventions Education Gave educational materials for:: Signs & symptoms of hypoglycemia, Signs & symptoms of hyperglycemia, Relate diabetes to coronary artery disease and Healthy eating Core - Initial Assessment Visit Date of Eval: 03/18/24 (initial eval ) Medication Compliance Preventative Medication(s):: Aspirin, Clopidogrel/P2Y12 inhibit, Statin/lipid and Beta haroon H/O mental health issues: depression, anxiety, or addiction?: No Doesn?t believe in the benefits of treatment?: No Believes medications are unnecessary or harmful?: No Has a concern about medication side effects?: No Expresses concern over the cost of medications?: No Outcomes/Goals: Verbalizes medications,desired effect & common side effects @ DC, Pt self-reports following medication regimen, Keeps card in wallet w/medications listed by DC and Other additional outcome/goals: Interventions/plans: Instruct on medication effects & side effects, Review medication list w/patient every two weeks, Instruct importance of taking meds as ordered & assist problem solving and Other additional Tobacco Use Tobacco Use: Non-smoker Hypertension Hypertension Diagnosis:: Hypertension ICD-10 I10 Resting Blood Pressure:: 173/89 [place] [employer] Hypertension Guidelines Outcomes/Goals: Able to verbalize/achieve optimal blood pressure <130/80, Incorporates diet changes & exercise for blood pressure control by DC and Other additional outcomes/goals Interventions/plan: Instruct on optimal blood pressure, hypertension & medications, Instruct on effects of sodium, alcohol, stress, exercise &hypertension and Other additional plan/interventions Tobacco Cessation Referral Smoking Cessation Referral:: No Individual Education/Counseling:: No Education Schedule Given:: Yes Psychosocial - Initial Assess VIsit Date of Eval: 03/18/24 (initial eval ) History of previous Mental disease:: No Target Goals Target Goals Outcomes/Goals: See list Psychosocial Outcomes/Goals:: ID's personal stressors & 2 strategies to manage stress by discharge and Other Additional outcome/goals: Intervention/Plan: See List Interventions/Plan:: Assess stressors,coping strategies & signs of derpression on admission, Instruct/assist pt to develop coping & personal stress Mgt strategies, Refer to Behavioral Health if appropriate, Refer to Physician if appropriate, Instruct patient to recognize signs & symptoms of depression, Instruct patient to recog and Other additional plan/intervention Patient Health Questionnaire PHQ-9 Screening Initial Assessment: 1. Little interest or pleasure in doing things: Not at all 2. Feeling down, depressed, or hopeless: Not at all 3. Trouble falling or staying asleep, or sleeping too much: More than half the days 4. Feeling tired or having little energy: Several days 5. Poor appetite or overeating: Several days 6. Feeling bad about yourself -- or that you are a failure or have let yourself or your family down: Not at all 7. Trouble concentrating on things, such as reading the newspaper or watching television: Not at all 8. Moving or speaking so slowly that other people could have noticed. Or the opposite - being so fidgety or restless that you have been moving around a lot more than usual: Not at all 9. Thoughts that you would be better off , or of hurting yourself in some way: Not at all How difficult have these problems made it for you to do your work, take care of things at home, or get along with other people?: Not difficult at all Total Score: 4 MICHAEL-Q SV Test Statements CAD is a disease of the arteries in the heart: False Examples of risk factors for heart disease: True Angina is chest pain or discomfort: I Don't Know The benefits of resistance training include: True Eating more meat and dairy products: I Don't Know Anti-platelet medications such as aspirin are important: I Don't Know The only effective way to manage stress: False An exercise warm-up slowly increases heart rate: True Prepared, processed foods usually have high sodium: True Depression is common after a heart attack: I Don't Know The statin medications lower cholesterol: True To control blood pressure, lower the amount of sodium: True If someone gets chest discomfort during walking: False Transfats are partially hydrogenated vegetable oils: True Sleep apnea that is not treated increases the risk: False To control cholesterol, one should become a vegetarian: False Someone knows if he/she is exercising at the right level: True Diabetes cannot be prevented with exercise & health eating: True Stress is a large risk for heart attack: True A diet that can help lower blood pressure is rich in: True Total Score Total Correct Responses: 15 Self-Efficacy 6-Item Scale Initial Assessment: We would like to know how confident you are in doing certain activities. Please select your confidence level for: Fatigue Select Number: 7 Physical Discomfort or Pain Select Number: 8 Emotional Distress Select Number: 8 Other Symptoms or Health Problems Select Number: 7 Different Tasks and Activities Select Number: 9 Medication Select Number: 9 Total Score:: 8 Nutrition Survey Nutrition Survey Instructions Scoring Instructions Nutrition Survey Initial: Have you lost >10 lbs over the past 2 months without trying?: Yes Are you following a special diet at home for diabetes, low fat, or low salt?: Yes Are you interested in meeting with a dietitian for help understanding your diet?: No Do you eat less than 3 meals a day?: No Do you eat fatty meats (navarrete, sausage, ribs, etc), fried foods, desserts, large amounts of salad dressings, margarine, butter, or cheese most days?: No Do you have food allergies? 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 Frequency: 2x/week for 18 weeks [36 sessions] and 3x/week for 12 weeks [36 sessions] Intensity: 60-80% of age predicted maximum heart rate reserve Current METSs:: 3 Target Heart Rate:: 94-118 Nutrition - 30-Day Assessment Weight Mgt (Other Care) Height: 5 ft 10 in Weight:: 170 lb BMI: 24.3 Nutrition - 60-Day Assessment Weight Mgt (Other Care) Height: 5 ft 10 in Weight:: 170 lb BMI: 24.3 Core - Final Assessment Hypertension Resting Blood Pressure:: 173/89 [place] [employer] Hypertension Guidelines Core - 60-Day Assessment Hypertension Resting Blood Pressure:: 173/89 [place] [employer] Hypertension Guidelines Psychosocial - 30-Day Assess Target Goals Target Goals Psychosocial - 60-Day Assess Target Goals Target Goals Psychosocial - 90-Day Assess Target Goals Target Goals Psychosocial - Final Assessmen Target Goals Target Goals Nutrition - 90-Day Assessment Weight Mgt (Other Care) Height: 5 ft 10 in Weight:: 170 lb BMI: 24.3 Nutrition - Final Assessment Program Goals Patient has diagnosis of Hyperlipidemia (ICD E78)?: Yes Weight Mgt (Other Care) Height: 5 ft 10 in Weight:: 170 lb BMI: 24.3
[2024-03-18 08:10] VITALS: BP 173/89
[2024-03-18 08:20] VITALS: BMI 24.3
[2024-03-18 08:41] VITALS: BMI 24.3
== END | disposition home or self-care (01) ==
LOC: CR 07:42
PROVIDERS: PCP Registered Nurse; Referring Provider Internal Medicine Cardiovascular Disease; Visit Provider Internal Medicine Cardiovascular Disease
DX: Z95.1 Presence of aortocoronary bypass graft (principal); R06.83 Snoring; I10 Essential (primary) hypertension; I25.10 Atherosclerotic heart disease of native coronary artery without angina pectoris; E78.00 Pure hypercholesterolemia, unspecified; Z95.5 Presence of coronary angioplasty implant and graft; R53.83 Other fatigue

== ENCOUNTER 2024-04-08 09:15 | Outpatient (RCR) | payer OTHER, SELFPAY ==
[2024-03-18 08:41] VITALS: BMI 24.3
== END 2024-04-08 23:59 ==
LOC: CR 09:15
PROVIDERS: PCP Registered Nurse; Referring Provider Internal Medicine Cardiovascular Disease; Visit Provider Internal Medicine Cardiovascular Disease
DX: Z95.1 Presence of aortocoronary bypass graft (principal); I10 Essential (primary) hypertension; E78.00 Pure hypercholesterolemia, unspecified; I21.4 Non-ST elevation (NSTEMI) myocardial infarction
CPT/HCPCS: 93798

== ENCOUNTER 2024-05-06 09:15 | Outpatient (RCR) | payer OTHER, SELFPAY ==
[2024-03-18 08:41] VITALS: BMI 24.3
--- NOTE | 2024-04-15 08:19 | CR.ITP_ITS ---
Exercise - Initial Assessment Visit Session #:: 4 Physician Prescribed Exercise Modalities: Schwinn Airdyne AD-7, SciFit Stepper and SciFit Lateral Derrick Engineer Nutrition - Initial Assessment Weight Mgt (Other Care) Height: 5 ft 10 in Weight:: 173 lb BMI: 24.8 Psychosocial - Initial Assess Target Goals Target Goals Referral to Behavioral Health PS - Interventions: Yes: Attend Stress Management Classes and No: Referral to Behavioral Health if PHQ-9 score >9:, No: Referral to [facility] and No: Referral to Physician if PHQ-9 if score is 5-9: Patient Health Questionnaire PHQ-9 Screening 30-Day Re-eval Assessment: 1. Little interest or pleasure in doing things: Not at all 2. Feeling down, depressed, or hopeless: Not at all 3. Trouble falling or staying asleep, or sleeping too much: Several days 4. Feeling tired or having little energy: Several days 5. Poor appetite or overeating: Several days 6. Feeling bad about yourself -- or that you are a failure or have let yourself or your family down: Not at all 7. Trouble concentrating on things, such as reading the newspaper or w SoFihing television: Not at all 8. Moving or speaking so slowly that other people could have noticed. Or the opposite - being so fidgety or restless that you have been moving around a lot more than usual: Not at all 9. Thoughts that you would be better off , or of hurting yourself in some way: Not at all How difficult have these problems made it for you to do your work, take care of things at home, or get along with other people?: Not difficult at all Total Score: 3 Self-Efficacy 6-Item Scale 30-Day Re-eval Assessment: We would like to know how confident you are in doing certain activities. Please select your confidence level for: Fatigue Select Number: 7 Physical Discomfort or Pain Select Number: 8 Emotional Distress Select Number: 8 Other Symptoms or Health Problems Select Number: 7 Different Tasks and Activities Select Number: 9 Medication Select Number: 9 Total Score:: 8 Nutrition Survey Nutrition Survey Instructions Scoring Instructions Exercise - 30-day Assessment Visit Date of Eval: 04/15/24 Session #:: 4 Physician Prescribed Exercise Modalities: Schwinn Airdyne AD-7, SciFit Stepper and SciFit Lateral Derrick Engineer Frequency: 3x/week for 12 weeks [36 sessions] Intensity: 60-80% of age predicted maximum heart rate reserve Duration: 30 - 45 minutes Current METSs:: 3.0 Target Heart Rate:: 94-118 Current RPE:: 12 Maximum Excercise HR:: 76 Resting Blood Pressure: 132/70 Maximum Exercise Blood Pressure: 154/70 EKG Type: Sinus kulwant to sinus rhythm without ectopy. Current Physical Activity or Exercising minutes: 34:20 Outcomes & Goals Goals:: Verbalizes understanding of THR, RPE & goal METS by session 6, Documents in home exercise log/reports 30 min aerobic 5 day/wk by DC and Demonstrates accurate pulse taking by DC Intervention & Plan Exercise Program Goals: Instruct on personal THR & RPE, Instruct on MET level & personal MET goal, Show patient to take own pulse /validate performance until accurate and Instruct on home exercise 30-day Reassessments 30 day Reassessments:: Met Physical Activity Home Exercise Physical Activity - Home Exercise: Safe Exercise, Warm-up, Self-monitoring, Cool-Down, Home Exercise > 30 min Daily and Sitting Time <3 hours/daily Outcomes & Goals Outcomes/Goals: Demonstrates correct Warm-up/exercise Cool-Down (S3) if = 2.5 METs, Verbalizes symptoms of exercise intolerance by Session 3 (S3) and Demonstrate safe equipment use (S3) & follows exercise prescrition (6) Intervention & Plan Plan/Intervention: Instruct warm-up & cool-down if exercising at > 2 METs, Instruct on symptoms of exercise intolerance & actions to take, Instruct & monitor on saf and Assess intial functional capacity & safety risk 30-day Reassessments 30 day Reassessments:: Met Exercise - 60-day Assessment Physician Prescribed Exercise Modalities: Luca Chambersne AD-7, SciFit Stepper and SciFit Lateral Derrick Engineer Exercise - 90-day Assessment Physician Prescribed Exercise Modalities: Isabelainn dyne AD-7, SciFit Stepper and SciFit Lateral Derrick Engineer Exercise - Final/Discharge Physician Prescribed Exercise Modalities: Gilsonn Reyesne AD-7, SciFit Stepper and SciFit Lateral [place] Nutrition - 30-Day Assessment Program Goals Nutrition Program Goals Patient has diagnosis of Hyperlipidemia (ICD E78)?: Yes Visit Date of Eval: 04/15/24 Session #:: 4 Cholesterol/Lipids (Other Core Measures) Determine presence & major risk factors that modify LDL goal: Hypertension or hypertensive medication and Age men > 45 years; women >/= 55 years Outcomes/Goals: Pt IDs own risk factors & lifestyle modifications by Session 10, Verbalizes symptoms of angina & response by session 3. and Pt independently manages Intervention/Plan: Instruct on personal lipid levels & lipid goals/NCEP guidelines and Instruct on cholesterol Referral to dietitian:: Yes 30-day Reassessments:: Progressing Diabetes (Other Core Measures) Diabetes Type: Not Applicable Weight Mgt (Other Care) Height: 5 ft 10 in Weight:: 173 lb BMI: 24.8 Diagnosis Overweight/Obesity BMI> 30% ICD-10 E66: No Diagnosis High BMI/Morbid Obesity BMI> 35% ICD-10 Z68: No Outcomes/Goals: Pt sets, maintains & shows weight loss goal & trend during rehab Intervention/Plan: Instruct on ideal BMI & set weight loss goal w/patient Healthy Eating Habits Will attend diet classes:: Yes Outcomes/Goals:: Consume diet rich in vegs,fruits,whole grain/high fiber,fish,lean meat and Limit sat/trans fats,cholesterol & added salts & sugars Intervention/Plan:: Assess current eating habits 30-day Reassessments:: Met Education Gave educational materials for:: Healthy eating Nutrition - 60-Day Assessment Weight Mgt (Other Care) Height: 5 ft 10 in Weight:: 173 lb BMI: 24.8 Core - 30-Day Assessment Visit Date of Eval: 04/15/24 Session #:: 4 Medication Compliance Preventative Medication(s):: Aspirin, Clopidogrel/P2Y12 inhibit, Statin/lipid and Beta haroon H/O mental health issues: depression, anxiety, or addiction?: No Outcomes/Goals: Verbalizes medications,desired effect & common side effects @ DC, Pt self-reports following medication regimen and Keeps card in wallet w/medications listed by DC Interventions/plans: Instruct on medication effects & side effects, Review medication list w/patient every two weeks and Instruct importance of taking meds as ordered & assist problem solving 30-day Reassessments:: Met Tobacco Use Tobacco Use: Non-smoker Hypertension Hypertension Diagnosis:: Hypertension ICD-10 I10 Resting Blood Pressure:: 132/70 [place] [employer] Hypertension Guidelines Peak Exercise Blood Pressure:: 154/70 Outcomes/Goals: Able to verbalize/achieve optimal blood pressure <130/80 and Incorporates diet changes & exercise for blood pressure control by DC Interventions/plan: Instruct on optimal blood pressure, hypertension & medications and Instruct on effects of sodium, alcohol, stress, exercise &hyper tension 30 day Reassessments:: Met Tobacco Cessation Referral Smoking Cessation Referral:: No Individual Education/Counseling:: No Education Schedule Given:: Yes Psychosocial - 30-Day Assess VIsit Date of Eval: 04/15/24 Session #:: 4 Not Applicable: Yes History of previous Mental disease:: No Target Goals Target Goals Psychosocial Test Tool Used:: PHQ-9 Questionnaire phq-9 Severity Referral to Behavioral Health PS - Interventions: Yes: Attend Stress Management Classes and No: Referral to Behavioral Health if PHQ-9 score >9:, No: Referral to [facility] and No: Referral to Physician if PHQ-9 if score is 5-9: Outcomes/Goals: See list Psychosocial Outcomes/Goals:: ID's personal stressors & 2 strategies to manage stress by discharge Intervention/Plan: See List Interventions/Plan:: Assess stressors,coping strategies & signs of derpression on admission, Instruct/assist pt to develop coping & personal stress Mgt strategies, Instruct patient to recognize signs & symptoms of depression and Instruct patient to recog 30-day Reassessments: 30 day Reassessments:: Met Psychosocial - 60-Day Assess Target Goals Target Goals Referral to Behavioral Health PS - Interventions: Yes: Attend Stress Management Classes and No: Referral to Behavioral Health if PHQ-9 score >9:, No: Referral to [facility] and No: Referral to Physician if PHQ-9 if score is 5-9: Outcomes/Goals: See list Psychosocial Outcomes/Goals:: ID's personal stressors & 2 strategies to manage stress by discharge Psychosocial - 90-Day Assess Target Goals Target Goals Referral to Behavioral Health PS - Interventions: Yes: Attend Stress Management Classes and No: Referral to Behavioral Health if PHQ-9 score >9:, No: Referral to [facility] and No: Referral to Physician if PHQ-9 if score is 5-9: Psychosocial - Final Assessmen Target Goals Target Goals Referral to Behavioral Health PS - Interventions: Yes: Attend Stress Management Classes and No: Referral to Behavioral Health if PHQ-9 score >9:, No: Referral to [facility] and No: Referral to Physician if PHQ-9 if score is 5-9: Nutrition - 90-Day Assessment Weight Mgt (Other Care) Height: 5 ft 10 in Weight:: 173 lb BMI: 24.8 Nutrition - Final Assessment Weight Mgt (Other Care) Height: 5 ft 10 in Weight:: 173 lb BMI: 24.8
[2024-04-15 08:21] VITALS: BP 132/70
[2024-04-15 08:25] VITALS: BP 132/70; BMI 24.8
== END 2024-05-08 23:59 ==
LOC: CR 09:15
PROVIDERS: PCP Registered Nurse; Referring Provider Internal Medicine Cardiovascular Disease; Visit Provider Internal Medicine Cardiovascular Disease
DX: Z95.1 Presence of aortocoronary bypass graft (principal); I10 Essential (primary) hypertension; E78.00 Pure hypercholesterolemia, unspecified; I21.4 Non-ST elevation (NSTEMI) myocardial infarction
CPT/HCPCS: 93798

== ENCOUNTER 2024-06-08 13:00 | Outpatient (RCR) | payer OTHER, SELFPAY ==
[2024-04-15 08:25] VITALS: BMI 24.8
[2024-05-09 00:16] VITALS: BP 132/70
--- NOTE | 2024-05-16 08:41 | CR.ITP_ITS ---
Exercise - Initial Assessment Physician Prescribed Exercise Modalities: Luca Matute AD-7, SciFit Stepper and SciFit Lateral Rip Tailer Nutrition - Initial Assessment Weight Mgt (Other Care) Height: 5 ft 10 in Weight:: 175 lb BMI: 25.1 Core - Initial Assessment Hypertension Resting Blood Pressure:: 148/72 [place] [employer] Hypertension Guidelines Psychosocial - Initial Assess Target Goals Target Goals Referral to Behavioral Health PS - Interventions: Yes: Attend Stress Management Classes and No: Referral to Behavioral Health if PHQ-9 score >9:, No: Referral to [facility] and No: Referral to Physician if PHQ-9 if score is 5-9: Patient Health Questionnaire PHQ-9 Screening 60-Day Re-eval Assessment: 1. Little interest or pleasure in doing things: Not at all 2. Feeling down, depressed, or hopeless: Not at all 3. Trouble falling or staying asleep, or sleeping too much: Several days 4. Feeling tired or having little energy: Not at all 5. Poor appetite or overeating: Several days 6. Feeling bad about yourself -- or that you are a failure or have let yo urself or your family down: Not at all 7. Trouble concentrating on things, such as reading the newspaper or watching television: Not at all 8. Moving or speaking so slowly that other people could have noticed. Or the opposite - being so fidgety or restless that you have been moving around a lot more than usual: Not at all 9. Thoughts that you would be better off , or of hurting yourself in some way: Not at all How difficult have these problems made it for you to do your work, take care of things at home, or get along with other people?: Not difficult at all Total Score: 2 Self-Efficacy 6-Item Scale 60-Day Re-eval Assessment: We would like to know how confident you are in doing certain activities. Please select your confidence level for: Fatigue Select Number: 8 Physical Discomfort or Pain Select Number: 9 Emotional Distress Other Symptoms or Health Problems Select Number: 8 Different Tasks and Activities Select Number: 9 Medication Select Number: 9 Nutrition Survey Nutrition Survey Instructions Scoring Instructions Exercise - 30-day Assessment Physician Prescribed Exercise Modalities: Luca Matute AD-7, SciFit Stepper and SciFit Lateral [place] Exercise - 60-day Assessment Visit Date of Eval: 05/16/24 Session #:: 17 Physician Prescribed Exercise Modalities: Schwinn Airdyne AD-7, SciFit Stepper and SciFit Lateral Rip Tailer Frequency: 3x/week for 12 weeks [36 sessions] Intensity: 60-80% of age predicted maximum heart rate reserve Duration: 30 - 45 minutes Current METSs:: 6.5 Target Heart Rate:: 94-118 Current RPE:: 11-12 Maximum Excercise HR:: 88 Resting Blood Pressure: 118/62 Maximum Exercise Blood Pressure: 148/72 EKG Type: SB to sinus rhythm without ectopy Current Physical Activity or Exercising minutes: 36:20 Outcomes & Goals Goals:: Verbalizes understanding of THR, RPE & goal METS by session 6, Documents in home exercise log/reports 30 min aerobic 5 day/wk by DC and Demonstrates accurate pulse taking by DC Intervention & Plan Exercise Program Goals: Instruct on personal THR & RPE, Instruct on MET level & personal MET goal, Show patient to take own pulse /validate performance until accurate and Instruct on home exercise 30-day Reassessments 30 day Reassessments:: Met Physical Activity Home Exercise Physical Activity - Home Exercise: Safe Exercise, Warm-up, Self-monitoring, Cool-Down, Home Exercise > 30 min Daily and Sitting Time <3 hours/daily Outcomes & Goals Outcomes/Goals: Demonstrates correct Warm-up/exercise Cool-Down (S3) if = 2.5 METs, Verbalizes symptoms of exercise intolerance by Session 3 (S3) and Demonstrate safe equipment use (S3) & follows exercise prescrition (6) Intervention & Plan Plan/Intervention: Instruct warm-up & cool-down if exercising at > 2 METs, Instruct on symptoms of exercise intolerance & actions to take, Instruct & monitor on saf and Assess intial functional capacity & safety risk 30-day Reassessments 30 day Reassessments:: Met Exercise - 90-day Assessment Physician Prescribed Exercise Modalities: Schwinn Airdyne AD-7, SciFit Stepper and SciFit Lateral [place] Exercise - Final/Discharge Physician Prescribed Exercise Modalities: Schwinn Airdyne AD-7, SciFit Stepper and SciFit Lateral Rip Tailer Nutrition - 30-Day Assessment Weight Mgt (Other Care) Height: 5 ft 10 in Weight:: 175 lb BMI: 25.1 Nutrition - 60-Day Assessment Visit Date of Eval: 05/16/24 Session #:: 17 Cholesterol/Lipids (Other Core Measures) Determine presence & major risk factors that modify LDL goal: Hypertension or hypertensive medication and Age men > 45 years; women >/= 55 years Outcomes/Goals: Pt IDs own risk factors & lifestyle modifications by Session 10, Verbalizes symptoms of angina & response by session 3. and Pt independently manages Intervention/Plan: Instruct on personal lipid levels & lipid goals/NCEP guidelines and Instruct on cholesterol Referral to dietitian:: Yes 30-day Reassessments:: Progressing Diabetes (Other Core Measures) Diabetes Type: Not Applicable Weight Mgt (Other Care) Not Applicable: Yes Height: 5 ft 10 in Weight:: 175 lb BMI: 25.1 Diagnosis Overweight/Obesity BMI> 30% ICD-10 E66: No Diagnosis High BMI/Morbid Obesity BMI> 35% ICD-10 Z68: No Outcomes/Goals: Pt sets, maintains & shows weight loss goal & trend during rehab Intervention/Plan: Instruct on ideal BMI & set weight loss goal w/patient 30 day Reassessments:: Met Healthy Eating Habits Will attend diet classes:: Yes Outcomes/Goals:: Consume diet rich in vegs,fruits,whole grain/high fiber,fish,lean meat and Limit sat/trans fats,cholesterol & added salts & sugars Intervention/Plan:: Assess current eating habits 30-day Reassessments:: Met Education Gave educational materials for:: Healthy eating Core - Final Assessment Hypertension Resting Blood Pressure:: 148/72 [place] [employer] Hypertension Guidelines Core - 60-Day Assessment Visit Date of Eval: 05/16/24 Session #:: 17 Medication Compliance Preventative Medication(s):: Aspirin, Clopidogrel/P2Y12 inhibit, Statin/lipid and Beta haroon H/O mental health issues: depression, anxiety, or addiction?: No Doesn?t believe in the benefits of treatment?: No Believes medications are unnecessary or harmful?: No Has a concern about medication side effects?: No Expresses concern over the cost of medications?: No Outcomes/Goals: Verbalizes medications,desired effect & common side effects @ DC, Pt self-reports following medication regimen and Keeps card in wallet w/medications listed by DC Interventions/plans: Instruct on medication effects & side effects and Instruct importance of taking meds as ordered & assist problem solving 30-day Reassessments:: Met Tobacco Use Tobacco Use: Non-smoker Hypertension Hypertension Diagnosis:: Hypertension ICD-10 I10 Resting Blood Pressure:: 118/62 Resting Blood Pressure:: 148/72 [place] [employer] Hypertension Guidelines Outcomes/Goals: Able to verbalize/achieve optimal blood pressure <130/80 and Incorporates diet changes & exercise for blood pressure control by DC Interventions/plan: Instruct on optimal blood pressure, hypertension & medications and Instruct on effects of sodium, alcohol, stress, exercise &hypertension 30 day Reassessments:: Met Tobacco Cessation Referral Smoking Cessation Referral:: No Individual Education/Counseling:: No Education Schedule Given:: Yes Psychosocial - 30-Day Assess Target Goals Target Goals Referral to Behavioral Health PS - Interventions: Yes: Attend Stress Management Classes and No: Referral to Behavioral Health if PHQ-9 score >9:, No: Referral to [facility] and No: Referral to Physician if PHQ-9 if score is 5-9: Outcomes/Goals: See list Psychosocial Outcomes/Goals:: ID's personal stressors & 2 strategies to manage stress by discharge Psychosocial - 60-Day Assess VIsit Date of Eval: 05/16/24 Session #:: 17 Not Applicable: Yes History of previous Mental disease:: No Target Goals Target Goals Psychosocial Test Tool Used:: PHQ-9 Questionnaire phq-9 Severity Referral to Behavioral Health PS - Interventions: Yes: Attend Stress Management Classes and No: Referral to Behavioral Health if PHQ-9 score >9:, No: Referral to [facility] and No: Referral to Physician if PHQ-9 if score is 5-9: Outcomes/Goals: See list Psychosocial Outcomes/Goals:: ID's personal stressors & 2 strategies to manage stress by discharge Intervention/Plan: See List Interventions/Plan:: Instruct/assist pt to develop coping & personal stress Mgt strategies, Instruct patient to recognize signs & symptoms of depression and Instruct patient to recog 30-day Reassessments: 30 day Reassessments:: Met Psychosocial - 90-Day Assess Target Goals Target Goals Referral to Behavioral Health PS - Interventions: Yes: Attend Stress Management Classes and No: Referral to Behavioral Health if PHQ-9 score >9:, No: Referral to [facility] and No: Referral to Physician if PHQ-9 if score is 5-9: Psychosocial - Final Assessmen Target Goals Target Goals Referral to Behavioral Health PS - Interventions: Yes: Attend Stress Management Classes and No: Referral to Behavioral Health if PHQ-9 score >9:, No: Referral to [facility] and No: Referral to Physician if PHQ-9 if score is 5-9: Nutrition - 90-Day Assessment Weight Mgt (Other Care) Height: 5 ft 10 in Weight:: 175 lb BMI: 25.1 Nutrition - Final Assessment Weight Mgt (Other Care) Height: 5 ft 10 in Weight:: 175 lb BMI: 25.1
[2024-05-16 08:48] VITALS: BP 118/62; BP 148/72; BMI 25.1
== END 2024-06-08 23:59 ==
LOC: CR 13:00
PROVIDERS: PCP Registered Nurse; Referring Provider Internal Medicine Cardiovascular Disease; Visit Provider Internal Medicine Cardiovascular Disease
DX: Z95.1 Presence of aortocoronary bypass graft (principal); I10 Essential (primary) hypertension; E78.00 Pure hypercholesterolemia, unspecified; I21.4 Non-ST elevation (NSTEMI) myocardial infarction
CPT/HCPCS: 93798

== ENCOUNTER → 2024-06-16 | Outpatient (CLI) | payer OTHER, SELFPAY ==
[2024-06-16 08:17] VITALS: BMI 25.7
[2024-06-16 12:35] LABS: T4 Total, Thyroxin 8.6 ug/dL (4.5-12.1); Thyroid Stim Hormone (TSH) 2.38 uIU/mL (0.358-3.74)
== END | disposition home or self-care (01) ==
PROVIDERS: PCP Registered Nurse; Referring Provider Internal Medicine Cardiovascular Disease; Visit Provider Internal Medicine Cardiovascular Disease
DX: I10 Essential (primary) hypertension (principal)
CPT/HCPCS: 36415; 84436; 84443

== ENCOUNTER 2024-06-20 13:00 | Outpatient (RCR) | payer OTHER, SELFPAY ==
[2024-05-16 08:48] VITALS: BMI 25.1
[2024-06-09 00:11] VITALS: BP 118/62; BP 132/70; BP 148/72
--- NOTE | 2024-06-16 08:11 | CR.ITP_ITS ---
Exercise - Initial Assessment Physician Prescribed Exercise Modalities: Treadmill, Schwinn Airdyne AD-7 and SciFit Stepper Nutrition - Initial Assessment Weight Mgt (Other Care) Height: 5 ft 10 in Weight:: 179 lb BMI: 25.7 Psychosocial - Initial Assess Target Goals Target Goals Patient Health Questionnaire PHQ-9 Screening 90-Day Re-eval Assessment: 1. Little interest or pleasure in doing things: Not at all 2. Feeling down, depressed, or hopeless: Not at all 3. Trouble falling or staying asleep, or sleeping too much: Several days 4. Feeling tired or having little energy: Not at all 5. Poor appetite or overeating: Several days 6. Feeling bad about yourself -- or that you are a failure or have let yourself or your family down: Not at all 7. Trouble concentrating on things, such as reading the newspaper or watching television: Not at all 8. Moving or speaking so slowly that other people could have noticed. Or the opposite - being so fidgety or restless that you have been moving around a lot more than usual: Not at all 9. Thoughts that you would be better off , or of hurting yourself in some way: Not at all How difficult have these problems made it for you to do your work, take care of things at home, or get along with other people?: Not difficult at all Total Score: 2 Self-Efficacy 6-Item Scale 90-Day Re-eval Assessment: We would like to know how confident you are in doing certain activities. Please select your confidence level for: Fatigue Select Number: 8 Physical Discomfort or Pain Select Number: 9 Emotional Distress Select Number: 8 Other Symptoms or Health Problems Select Number: 9 Different Tasks and Activities Select Number: 9 Medication Select Number: 9 Total Score:: 8 Nutrition Survey Nutrition Survey Instructions Scoring Instructions Exercise - 30-day Assessment Physician Prescribed Exercise Modalities: Treadmill, Schwinn Airdyne AD-7 and SciFit Stepper Exercise - 60-day Assessment Physician Prescribed Exercise Modalities: Treadmill, Schwinn Airdyne AD-7 and SciFit Stepper Exercise - 90-day Assessment Visit Date of Eval: 06/16/24 Session #:: 31 Physician Prescribed Exercise Modalities: Treadmill, Schwinn Airdyne AD-7 and SciFit Stepper Frequency: 3x/week for 12 weeks [36 sessions] Intensity: 60-80% of age predicted maximum heart rate reserve Duration: 30 - 45 minutes Current METSs:: 7.2 Target Heart Rate:: 94-118 Current RPE:: 11-12 Maximum Excercise HR:: 80 Resting Blood Pressure: 130/64 Maximum Exercise Blood Pressure: 128/72 EKG Type: SB to NSR with rare PAC Outcomes & Goals Goals:: Verbalizes understanding of THR, RPE & goal METS by session 6, Documents in home exercise log/reports 30 min aerobic 5 day/wk by DC, Demonstrates accurate pulse taking by DC and Other additional outcome/goals: see below Intervention & Plan Exercise Program Goals: Instruct on personal THR & RPE, Instruct on MET level & personal MET goal, Show patient to take own pulse /validate performance until accurate, Instruct on home exercise and Other additional plan/int 30-day Reassessments 30 day Reassessments:: Met Physical Activity Home Exercise Physical Activity - Home Exercise: Safe Exercise, Warm-up, Self-monitoring, Cool-Down, Home Exercise > 30 min Daily and Sitting Time <3 hours/daily Outcomes & Goals Outcomes/Goals: Demonstrates correct Warm-up/exercise Cool-Down (S3) if = 2.5 METs, Verbalizes symptoms of exercise intolerance by Session 3 (S3), Demonstrate safe equipment use (S3) & follows exercise prescrition (6) and Other: See below Intervention & Plan Plan/Intervention: Instruct warm-up & cool-down if exercising at > 2 METs, Instruct on symptoms of exercise intolerance & actions to take, Instruct & monitor on saf, Assess intial functional capacity & safety risk and Other See below 30-day Reassessments 30 day Reassessments:: Met Exercise - Final/Discharge Physician Prescribed Exercise Modalities: Treadmill, Schwinn Airdyne AD-7 and SciFit Stepper Nutrition - 30-Day Assessment Weight Mgt (Other Care) Height: 5 ft 10 in Weight:: 179 lb BMI: 25.7 Nutrition - 60-Day Assessment Weight Mgt (Other Care) Height: 5 ft 10 in Weight:: 179 lb BMI: 25.7 Core - 90 Day Assessment Visit Date of Eval: 06/16/24 Session #:: 31 Medication Compliance Preventative Medication(s):: Aspirin, Clopidogrel/P2Y12 inhibit, Statin/lipid and Beta haroon Doesn?t believe in the benefits of treatment?: No Believes medications are unnecessary or harmful?: No Has a concern about medication side effects?: No Expresses concern over the cost of medications?: No Outcomes/Goals: Verbalizes medications,desired effect & common side effects @ DC, Pt self-reports following medication regimen, Keeps card in wallet w/medications listed by DC and Other additional outcome/goals: Interventions/plans: Instruct on medication effects & side effects, Review medication list w/patient every two weeks, Instruct importance of taking meds as ordered & assist problem solving and Other additional 30-day Reassessments:: Met Tobacco Use Tobacco Use: Non-smoker Hypertension Hypertension Diagnosis:: Hypertension ICD-10 I10 Resting Blood Pressure:: 130/64 [place] [employer] Hypertension Guidelines Peak Exercise Blood Pressure:: 128/72 Outcomes/Goals: Able to verbalize/achieve optimal blood pressure <130/80, Incorporates diet changes & exercise for blood pressure control by DC and Other additional outcomes/goals Interventions/plan: Instruct on optimal blood pressure, hypertension & medications, Instruct on effects of sodium, alcohol, stress, exercise &hypertension and Other additional plan/interventions 30 day Reassessments:: Met Tobacco Cessation Referral Smoking Cessation Referral:: No Individual Education/Counseling:: No Education Schedule Given:: Yes Psychosocial - 30-Day Assess Target Goals Target Goals Psychosocial - 60-Day Assess Target Goals Target Goals Psychosocial - 90-Day Assess VIsit History of previous Mental disease:: No Target Goals Target Goals Outcomes/Goals: See list Psychosocial Outcomes/Goals:: ID's personal stressors & 2 strategies to manage stress by discharge and Other Additional outcome/goals: Intervention/Plan: See List Interventions/Plan:: Assess stressors,coping strategies & signs of derpression on admission, Instruct/assist pt to develop coping & personal stress Mgt strategies, Refer to Behavioral Health if appropriate, Refer to Physician if appropriate, Instruct patient to recognize signs & symptoms of depression, Instruct patient to recog and Other additional plan/intervention 30-day Reassessments: 30 day Reassessments:: Met Psychosocial - Final Assessmen Target Goals Target Goals Nutrition - 90-Day Assessment Program Goals Nutrition Program Goals Patient has diagnosis of Hyperlipidemia (ICD E78)?: Yes Visit Date of Eval: 06/16/24 Session #:: 31 Cholesterol/Lipids (Other Core Measures) Determine presence & major risk factors that modify LDL goal: Cigarette smoking, Hypertension or hypertensive medication, Low HDL cholesterol <40 mg/dL*, Family history of premature CHD in Male < 55 years: female <65 yearsFa and Age men > 45 years; women >/= 55 years Outcomes/Goals: Pt IDs own risk factors & lifestyle modifications by Session 10, Verbalizes symptoms of angina & response by session 3., Pt independently manages and Other Additional Outcomes/Goals: Intervention/Plan: Advocate for lipid panel cholesterol medication if applicable, Instruct on personal lipid levels & lipid goals/NCEP guidelines, Instruct on cholesterol and Other additional plan/int 30-day Reassessments:: Met Diabetes (Other Core Measures) Diabetes Type: Not Applicable Weight Mgt (Other Care) Height: 5 ft 10 in Weight:: 179 lb BMI: 25.7 Diagnosis Overweight/Obesity BMI> 30% ICD-10 E66: No Diagnosis High BMI/Morbid Obesity BMI> 35% ICD-10 Z68: No Outcomes/Goals: Pt sets, maintains & shows weight loss goal & trend during rehab and Other additional outcomes/goals Intervention/Plan: Instruct on ideal BMI & set weight loss goal w/patient, Assist pt to ID & incorporate diet changes for weight loss by S9, Refer to Structured Weight Loss program as appropriate, Encourage goal of using 250- 300dcal per session for weight loss and Other additional plan/interventions 30 day Reassessments:: Met Healthy Eating Habits Will attend diet classes:: Yes Outcomes/Goals:: Consume diet rich in vegs,fruits,whole grain/high fiber,fish,lean meat, Limit sat/trans fats,cholesterol & added salts & sugars and Other additional outcome/goals: Intervention/Plan:: Assess current eating habits and Other Additional plan/inter ventions 30-day Reassessments:: Met Education Gave educational materials for:: Signs & symptoms of hypoglycemia, Signs & symptoms of hyperglycemia, Relate diabetes to coronary artery disease and Healthy eating Nutrition - Final Assessment Weight Mgt (Other Care) Height: 5 ft 10 in Weight:: 179 lb BMI: 25.7
[2024-06-16 08:17] VITALS: BP 130/64; BMI 25.7
== END 2024-07-09 23:59 ==
LOC: CR 13:00
PROVIDERS: PCP Registered Nurse; Referring Provider Internal Medicine Cardiovascular Disease; Visit Provider Internal Medicine Cardiovascular Disease
DX: Z95.1 Presence of aortocoronary bypass graft (principal); I10 Essential (primary) hypertension; E78.00 Pure hypercholesterolemia, unspecified; I21.4 Non-ST elevation (NSTEMI) myocardial infarction
CPT/HCPCS: 93798

== ENCOUNTER → 2024-08-03 | Outpatient (CLI) | payer OTHER, SELFPAY ==
[2024-06-16 08:17] VITALS: BMI 25.7
[2024-08-03 11:09] LABS: Hematocrit 42.5 % (40-54); Hemoglobin 13.9 g/dL (13.0-16.5); Mean Corp Hgb Conc 32.7 g/dL (32-36); Mean Corpuscular Hgb 29.6 pg (27.0-32.0); Mean Corpuscular Volume 90.6 fL (80-94); Mean Platelet Vol. 9.9 fl (6.2-12.0); Platelet Count 202 K/mm3 (150-450); RBC Distribution Width CV 14.2 % (11.6-14.6); RBC Distribution Width SD 47.3 fl (35.1-43.9); Red Blood Count 4.69 M/mm3 (4.6-6.2); White Blood Count 5.2 K/mm3 (4.4-11.0)
[2024-08-03 11:35] LABS: ALB/GLOB Ratio 1.2 RATIO (0.9-2.4); AST(SGOT) 15 U/L (15-37); Alanine Aminotransfer ALT/SGPT 22 U/L (16-61); Albumin, Serum 4.1 g/dL (3.2-5.0); Alkaline Phosphatase 85 U/L (45-117); Anion Gap 3 (5-15); BUN 24 mg/dL (7-18); BUN/Creat Ratio 21.8 RATIO (10-20); Calcium,Total 9.3 mg/dL (8.5-10.1); Chloride 108 mmol/L (98-107); EST Glomerular Filtration Rate 72 mL/min (>60); Est Glom Filt Rate - Afr Amer 87 mL/min (>60); Globulin 3.5 g/dL (2.2-4.2); Glucose 99 mg/dL (74-106); Potassium 4.2 mmol/L (3.5-5.1); Protein, Total 7.6 g/dL (6.4-8.2); Sodium Level 139 mmol/L (136-145)
== END | disposition home or self-care (01) ==
LOC: LAB 10:36
PROVIDERS: PCP Registered Nurse; Referring Provider Internal Medicine Cardiovascular Disease; Visit Provider Internal Medicine Cardiovascular Disease
DX: I25.10 Atherosclerotic heart disease of native coronary artery without angina pectoris (principal)
CPT/HCPCS: 36415; 80053; 85027